=== PATIENT | female | born 1990 | race Asian ===

== ENCOUNTER 2018-10-13 21:27 | Emergency (ER) | payer OTHER ==
[2018-10-13 21:43] VITALS: BP 123/73; PULSE 96; TEMP 99.4; BMI 24.7
[2018-10-13] MEDS ORDERED: RANITIDINE HCL 150 MG TABLET (FP) PO ONE (22:14)
[2018-10-13] MEDS ORDERED: predniSONE 20 MG TABLET (UD) PO ONE (22:14)
[2018-10-13] MEDS ORDERED: RANITIDINE HCL 150 MG TABLET (FP) ONE (22:20)
[2018-10-13] MEDS ORDERED: predniSONE 20 MG TABLET (UD) ONE (22:20)
--- NOTE | 2018-10-13 22:20 | PDOC ---
History of Present Illness - General Chief Complaint: Head/Neck problem Stated Complaint: NUMB FACE/HEADACHE Time Seen by Provider: 10/13/18 22:00 - History of Present Illness Initial Comments: 10/13/18 22:14 28 yo F with no significant pmh who right facial swelling, redness, itching, and BL neck itching. Patient reports acute onset of right sided facial swelling , numbness, and hives, with itching of BL UE, and itching up BL UE. Endorses lightheadedness, now improved. Patient with no identifiable triggers. Symptoms improved with diphehydramine. Denies recent contact exposure, topical emollients , detergents, diet changes, medication change. Denies h/o similar presentation. Denies h/o EpiPen use, or anaphylaxis. Patient denies DIAS, vision change, palpitations, cough, wheezing, orthopena, PND , leg swelling/pain, N/V, F,C, CP, SOB, urinary complaints, hematuria, BPR, abdominal pain, diarrhea, constipation, weakness, sensory changes. PMHx: as noted above ROS: as noted SHx: Denies IVDA Allergies: NKDA Past History - Past Medical History Allergies/Adverse Reactions: Allergies Allergy/AdvReac Type Severity Reaction Status Date / Time No Known Allergies Allergy Verified 10/13/18 21:43 Home Medications: Ambulatory Orders Epinephrine [Epipen] 0.3 mg IJ PRN PRN #1 auto.injct MDD 1 10/13/18 Prednisone [Prednisone 50 MG TABLETS] 50 mg PO DAILY #4 tablet MDD 1 tab Ranitidine [Zantac -] 150 mg PO DAILY #4 tablet MDD 1 tab 10/13/18 COPD: No - Suicide/Smoking/Psychosocial Hx Smoking History: Never smoked Have you smoked in the past 12 months: No Information on smoking cessation initiated: No Hx Alcohol Use: No Drug/Substance Use Hx: No *Physical Exam - Vital Signs Last Vital Signs Temp Pulse Resp BP Pulse Ox 99.4 F 96 H 18 123/73 100 10/13/18 21:40 10/13/18 21:40 10/13/18 21:40 10/13/18 21:40 10/13/18 21:40 - Physical Exam Comments: 10/13/18 22:20 GENERAL: Awake, alert, and fully oriented, in no acute distress HEAD: No signs of trauma, normocephalic, atraumatic EYES: PERRLA, EOMI, sclera anicteric, conjunctiva clear ENT: + Right sided buccal swelling, with absent fluctuance, erythema, mucosal edema, uvula deviation. Auricles normal inspection, hearing grossly normal, nares patent, oropharynx clear without exudates. Moist mucosa NECK: Normal ROM, supple, no lymphadenopathy, JVD, or masses LUNGS: No distress, speaks full sentences, clear to auscultation bilaterally HEART: Regular rate and rhythm, normal S1 and S2, no murmurs, rubs or gallops, peripheral pulses normal and equal bilaterally. ABDOMEN: Soft, nontender, normoactive bowel sounds. No guarding, no rebound. No masses EXTREMITIES : Normal inspection, Normal range of motion, no edema. No clubbing or cyanosis. NEUROLOGICAL: Cranial nerves II through XII grossly intact. Normal speech, normal gait, no focal sensorimotor deficits SKIN: Warm, Dry, normal turgor, no rashes or lesions noted Medical Decision Making - Medical Decision Making 10/13/18 22:20 28 yo F with no significant pmh who right facial swelling, redness, itching, and BL neck itching. Vitals wnl, AF, A&OX3. 0/4 SIRS criteria.+ Right sided buccal swelling, with absent fluctuance, erythema, mucosal edema, uvula deviation. No evidence of airway compromise. No evidence of anaphylaxis, or systemic organ involvement. Denies muffled voice, trismus, vision change, palpitations, cough, wheezing, o N/V, F,C, CP, SOB, urinary complaints, hematuria, BPR, abdominal pain, diarrhea, weakness, sensory changes. Low suspicion bells palsy, no upper face involvement. Will consider sialadenolithiasis/itis. No evidence of tonislar deviation, or dentla or peritonsilar abscess within oropharyngeal cavity. ED Course: 10/13/18 22:28 Ranitidine 150 mg, Prednisone 60 mg 10/13/18 22:38 Ranitidine, Prednisone, EpiPen sent to pharm 10/13/18 22:50 No evidence of airway compromise. Stable for d/c with return precautions Advised to f/u applique cutter. *DC/Admit/Observation/Transfer Diagnosis at time of Disposition: Facial swelling - Discharge Dispostion Condition at time of disposition: Stable - Prescriptions Prescriptions: Epinephrine [Epipen] 0.3 mg IJ PRN PRN #1 auto.injct MDD 1 PRN Reason: Shortness Of Breath Prednisone [Prednisone 50 MG TABLETS] 50 mg PO DAILY #4 tablet MDD 1 tab Ranitidine [Zantac -] 150 mg PO DAILY #4 tablet MDD 1 tab - Referrals Referrals: Shawn Roger MD [Staff Physician] - - Patient Instructions Printed Discharge Instructions: DI for General Allergic Reactions Additional Instructions: Please return to the emergency department with any new or worsening symptoms or concerns. Please follow up with your primary care physician within 72 hours. Please take Ranitidine and Prednisone as prescribed. Please follow up with applique cutter within one week. - Post Discharge Activity
--- NOTE | 2018-10-13 23:10 | PDOC ---
Attending Attestation - HPI HPI: The patient is a 28 year old female, with no significant PMH, who presents to the emergency department today complaining of sudden onset right-sided facial swelling for one day. Patient was relaxing at home when her face suddenly felt numb. She then noticed it was significantly swollen, red, and itchy. She notes that the swelling is most prominent on the right cheek and right upper lip, and the itching radiates from her face to her throat, chest, arms, and hands. Patient endorses associated throat tightness, which was alleviated after taking benadryl prior to arrival. She also notes lightheadedness earlier, which has now resolved. Patient is unsure of any identifiable triggers, and reports having [place] earlier today. She denies history of allergic reactions. The patient denies chest pain, shortness of breath, headache and dizziness. Denies fever, chills, nausea, vomit, diarrhea and constipation. Denies dysuria, frequency, urgency and hematuria. Denies sick contacts, changes in household products, diet changes, or medication changes. Allergies: NKA Past surgical history: None reported Social history: None reported 10/13/18 23:20 - Physicial Exam PE: GENERAL: Awake, alert, and oriented. The patient is in no acute distress. HEAD: +Right buccal edema. +Right upper lip swelling. Normal with no signs of trauma. EYES: PERRLA, EOMI, sclera anicteric, conjunctiva clear. ENT: +Right buccal edema. +Right upper lip swelling. Ears normal, nares patent, oropharynx clear without exudates. Moist mucous membranes. No uvula edema. NECK: Normal range of motion, supple without lymphadenopathy, JVD, or masses. LUNGS: Breath sounds equal, clear to auscultation bilaterally. No wheezes, and no crackles. HEART:Regular rate and rhythm, normal S1 and S2 without murmur, rub or gallop. ABDOMEN: Soft, nontender, normoactive bowel sounds. No guarding, no rebound. No masses palpable. EXTREMITIES: Normal range of motion, no edema. No clubbing or cyanosis. No erythema, or tenderness. NEUROLOGICAL: Cranial nerves II through XII grossly intact. Normal speech. No focal neurological deficits. MUSCULOSKELETAL: Back non-tender to palpation, no CVA tenderness SKIN: Warm, Dry, normal turgor, no rashes or lesions noted. No urticaria. 10/13/18 23:20 - Medical Decision Making Documentation prepared by ARTEM Keyes, acting as medical insurance verifier for Lexy Gerber MD. 10/13/18 23:20 <Nida Castaneda - Last Filed: 10/13/18 23:20> - Resident Resident Name: Alexey Palma - ED Attending Attestation I have performed the following: I have examined & evaluated the patient, The case was reviewed & discussed with the resident, I agree w/resident's findings & plan, Exceptions are as noted - Medical Decision Making 10/13/18 23:04 Ms Edgar is a 28 yo F, 1 month post presenting with right lip and cheek swelling No tongue swelling No difficulty swallowing No drooling No wheezing Pt has not contacted any new detergents, lotions, foods, no pets No facial trauma Pt took Benadryl prior to arrival with improvement in swelling Unclear the cause of pt reaction Pt asked to follow up with Psychiatry Physician Return to the ER IMMEDIATELY for any recurrence/worsening of symptoms clinical impression: Allergic reaction, initial presentation 10/14/18 20:26 <Lexy Gerber - Last Filed: 10/14/18 20:27>
== END 2018-10-13 23:00 | disposition home or self-care (01) ==
LOC: JER 21:27
DX: O90.89 Other complications of the puerperium, not elsewhere classified (principal); T78.40XA Allergy, unspecified, initial encounter; X58.XXXA Exposure to other specified factors, initial encounter
CPT/HCPCS: 99281-25